=== PATIENT | female | born 1975 ===

== ENCOUNTER 2017-02-12 14:56 | Emergency (ER) | payer MEDICAID ==
[2017-02-12 14:56] VITALS: BMI 30.1
[2017-02-12 15:01] VITALS: BP 119/74; PULSE 78; RESP 16; TEMP 97.9; O2SAT 98
[2017-02-12] MEDS ORDERED: Tmp-Smz 800 mg-160 mg DS Tab PO STA (15:21)
[2017-02-12] MEDS ORDERED: Tmp-Smz 800 mg-160 mg DS Tab ONE (15:30)
--- NOTE | 2017-02-12 16:07 | C.PDOC ---
History Of Present Illness 41 y/o female whose PMHx includes DM, presents to the ED for evaluation of an infection to her right pinky toe which she noted around 2 days ago. Patient states she recently bought new sneakers which were small. She reports formation of a blister around the area, which then popped. Patient has been applying antibiotic ointment without improvement. Patient denies fever, chills, discharge or any injuries/trauma to the affected area. Time Seen by Provider: 02/12/17 15:11 Chief Complaint (Nursing): Lower Extremity Problem/Injury History Per: Patient History/Exam Limitations: no limitations Onset/Duration Of Symptoms: Days Current Symptoms Are (Timing): Still Present Additional History Per: Patient - Ankle/Foot Description Of Injury: denies: Fell, Struck With Object, Struck Against Object Past Medical History Reviewed: Historical Data, Nursing Documentation, Vital Signs Vital Signs: Last Vital Signs Temp 97.9 F 02/12/17 15:01 Pulse 78 02/12/17 15:01 Resp 16 02/12/17 15:01 BP 119/74 02/12/17 15:01 Pulse Ox 98 02/12/17 16:41 - Medical History PMH: Anxiety, Cardia Arrhythmia (heart murmurs), Depression, Diabetes, Hyperthyroidism, Seizures (last seizure: 1 week ago) Surgical History: No Surg Hx - [facility] Procedures DRUG DETOXIFICATION (02/28/15) Family History: States: Unknown Family Hx - Social History Hx Tobacco Use: Yes Hx Alcohol Use: No Hx Substance Use: No - Immunization History Hx Tetanus Toxoid Vaccination: Yes Hx Influenza Vaccination: Yes Hx Pneumococcal Vaccination: No Review Of Systems Except As Marked, All Systems Reviewed And Found Negative. Constitutional: Negative for: Fever, Chills Skin: Positive for: Other (+right pinky toe pain) Physical Exam - Physical Exam Appears: Non-toxic, No Acute Distress Skin: Warm, Dry, Other (superficial wound to right 5th toe. no discharge or tenderness on palpation ) Head: Atraumatic, Normacephalic Eye(s): bilateral: Normal Inspection Oral Mucosa: Moist Neck: Supple Extremity: Normal ROM, No Tenderness, No Calf Tenderness, Capillary Refill ( less than 2 seconds), No Deformity, No Swelling Pulses: Left Dorsalis Pedis: Normal, Right Dorsalis Pedis: Normal Neurological/Psych: Oriented x3, Normal Speech Gait: Steady ED Course And Treatment O2 Sat by Pulse Oximetry: 98 (on RA) Pulse Ox Interpretation: Normal Medical Decision Making Medical Decision Making: Impression: 41 y/o female with pain to right 5th toe from blister Plan: * Bactrim PO * Tylenol PO * reassess and disposition Progress Notes: Patient received Bactrim PO and Tylenol PO. Disposition Counseled Patient/Family Regarding: Need For Followup, Rx Given - Disposition Disposition: HOME/ ROUTINE Disposition Time: 16:05 Condition: STABLE Prescriptions: Sulfamethoxazole/Trimethoprim [Bactrim DS 800 mg-160 mg] 1 tab PO BID #14 tab Instructions: Blister (ED) Print Language: LATVIAN - POA Present On Arrival: None - Clinical Impression Clinical Impression: Blister - PA / CHASSIS WIRER / Resident Statement MD/DO has reviewed & agrees with the documentation as recorded. - Scribe Statement The provider has reviewed the documentation as recorded by the Scribe (Regina Ramos) All medical record entries made by the Scribe were at my direction and personally dictated by me. I have reviewed the chart and agree that the record accurately reflects my personal performance of the history, physical exam, medical decision making, and the department course for this patient. I have also personally directed, reviewed, and agree with the discharge instructions and disposition.
== END 2017-02-12 16:12 | disposition home or self-care (01) ==
LOC: C.ER 14:56
DX: S90.424A Blister (nonthermal), right lesser toe(s), initial encounter (principal); X58.XXXA Exposure to other specified factors, initial encounter

== ENCOUNTER 2017-06-09 21:14 | Inpatient (IN) | payer MEDICAID ==
[2017-06-09 21:15] VITALS: BMI 30.1
[2017-06-09] MEDS ORDERED: Sodium Chloride 0.9% 1,000 ML IV ONE (21:36)
[2017-06-09 21:49] LABS: BASO # 0.1 K/uL (0.0-0.2); BASO % 0.5 % (0.0-2.0); EOS # 0.1 K/uL (0.0-0.7); EOS % 0.4 % (0.0-4.0); LYMPH # 8.9 K/uL (1.0-4.3); LYMPH % 41.5 % (20.0-40.0); MEAN CORPUSCULAR HGB CONC 32.8 g/dL (33.0-37.0); MEAN PLATELET VOLUME 7.2 fL (7.2-11.7); MONO # 0.9 K/uL (0.0-0.8); NEUT # 11.5 K/uL (1.8-7.0); NEUT % 53.6 % (50.0-75.0); RBC 4.25 Mil/uL (3.80-5.20); WHITE BLOOD COUNT 21.4 K/uL (4.8-10.8)
--- NOTE | 2017-06-09 21:50 | C.PDOC ---
History Of Present Illness Patient was a visitor leaving the hospital who had a seizure in [facility] hallway and hit her face. Witnesses describe the seizure has a generalized tonic clonic seizure lasting 10-15 seconds. Patient is currently post ictal and has not verbalized any physical complaints. Time Seen by Provider: 06/09/17 21:33 Chief Complaint (Nursing): Seizure History Per: Other (Witnesses) History/Exam Limitations: no limitations Recent Seizure Activity Began: Just Before Arrival Number Of Seizures: One Length Of Seizures (Duration): Seconds Quality Of Seizure: Generalized Precipitating Factor(s): Other (Not known) Associated Symptoms: Injury As A Result Of Seizure Activity Post-ictal Period: Yes Severity: Moderate Pain Scale Rating Of: 4 Recent travel outside of the [place]: No Past Medical History Reviewed: Historical Data, Nursing Documentation, Vital Signs Vital Signs: Last Vital Signs Temp 98.6 F 06/09/17 21:37 Pulse 104 H 06/09/17 21:37 Resp 18 06/09/17 21:37 BP 117/70 06/09/17 21:37 Pulse Ox 97 06/09/17 22:41 - Medical History PMH: Anxiety, Cardia Arrhythmia (heart murmurs), Depression, Diabetes, Hyperthyroidism, Seizures Surgical History: No Surg Hx - [facility] Procedures DRUG DETOXIFICATION (02/28/15) Family History: States: No Known Family Hx - Social History Hx Tobacco Use: Yes Hx Alcohol Use: No Hx Substance Use: No - Immunization History Hx Tetanus Toxoid Vaccination: Yes Hx Influenza Vaccination: Yes Hx Pneumococcal Vaccination: No Review Of Systems Constitutional: Negative for: Fever, Chills Eyes: Negative for: Redness ENT: Negative for: Throat Pain Cardiovascular: Negative for: Chest Pain Gastrointestinal: Negative for: Nausea, Vomiting, Abdominal Pain Genitourinary: Negative for: Dysuria Musculoskeletal: Negative for: Back Pain Skin: Negative for: Rash Neurological: Positive for: Seizures Psych: Negative for: Anxiety Physical Exam - Physical Exam Appears: Non-toxic, Other (Awake, Alert, Slow to respond) Skin: Warm, Dry Head: Normacephalic Eye(s): bilateral: Normal Inspection, PERRL, EOMI Nose: Epistaxis, No Tenderness, Other (No crepitus palpated) Oral Mucosa: Moist Tongue: Laceration (small, right lat aspect ) Lips: Abrasion (lower lip) Teeth: Other (chipped r upper incisor) Neck: Trachea Midline, Supple Chest: Symmetrical, No Tenderness Cardiovascular: Rhythm Regular, No Murmur Respiratory: No Rales, No Rhonchi, No Wheezing Gastrointestinal/Abdominal: Soft, No Tenderness Back: No CVA Tenderness Extremity: Normal ROM Extremity: Bilateral: Atraumatic, Normal Color And Temperature, Normal ROM Neurological/Psych: Oriented x3, Normal Speech, Normal Cognition Gait: Steady ED Course And Treatment - Laboratory Results Result Diagrams: 06/09/17 21:42 06/09/17 21:42 O2 Sat by Pulse Oximetry: 97 (Room air) Pulse Ox Interpretation: Normal Progress Note: Head CT, orbits/facials CT, blood work, and urinalysis ordered. IV fluids administered. Disposition Discussed With : Padmini Johnson Comment: accepted the pt on her service and took over the care at 12:22 AM Doctor Will See Patient In The: Hospital Counseled Patient/Family Regarding: Studies Performed, Diagnosis - Disposition Disposition: HOSPITALIZED Disposition Time: 00:22 Condition: FAIR Forms: [employer] (Lebanese) - POA Present On Arrival: Falls Or Trauma, Poor Glycemic Control - Clinical Impression Clinical Impression: Seizure, Laceration of tongue, Fracture, tooth - Scribe Statement The provider has reviewed the documentation as recorded by the Scribe Solo Zhang All medical record entries made by the Scribe were at my direction and personally dictated by me. I have reviewed the chart and agree that the record accurately reflects my personal performance of the history, physical exam, medical decision making, and the department course for this patient. I have also personally directed, reviewed, and agree with the discharge instructions and disposition. Decision To Admit - Pt Status Changed To: Hospital Disposition Of: Inpatient - Admit Certification Admit to Inpatient:: After my assessment, the patient will require hospitalization for at least two midnights. This is because of the severity of symptoms shown, intensity of services needed, and/or the medical risk in this patient being treated as an outpatient. - InPatient: Physician Admission Certification: I certify that this patient requires 2 or more midnights of care for the following reason:: After my assessment, the patient will require hospitalization for at least two midnights. This is because of the severity of symptoms shown, intensity of services needed, and/or the medical risk in this patient being treated as an outpatient. - . Bed Request Type: Regular Admitting Physician: Padmini Johnson Patient Diagnosis: Seizure, Laceration of tongue, Fracture, tooth
[2017-06-09 21:54] LABS: ALBUMIN 4.8 g/dL (3.5-5.0); MEAN CELL VOLUME 100.4 fL (81.0-99.0)
[2017-06-09 21:57] LABS: ALB/GLOB RATIO 1.3 (1.0-2.1); ALT/SGPT 22 U/L (9-52); AST/SGOT 18 U/L (14-36); BLOOD UREA NITROGEN 11 mg/dL (7-17); GFR AFRICAN-AMERICAN > 60; GFR NON-AFRICAN AMERICAN > 60
--- NOTE | 2017-06-09 22:40 | CT ---
EXAM: CT Head Without Intravenous Contrast CLINICAL HISTORY: 41 years old, female; Injury or trauma and signs and symptoms; Fall; Initial encounter; Concussion / head injury; Syncope and collapse; Additional info: Seizure TECHNIQUE: Axial computed tomography images of the head/brain without intravenous contrast. This CT exam was performed using one or more of the following dose reduction techniques: automated exposure control, adjustment of the mA and/or kV according to patient size, and/or use of iterative reconstruction technique. COMPARISON: No relevant prior studies available. FINDINGS: Brain: Mild atrophy. No intracranial hemorrhage. No mass. No definite edema. Ventricles: No hydrocephalus. Bones/joints: No calvarial fracture. Mastoid air cells: No mastoid effusion. IMPRESSION: 1. No intracranial hemorrhage. 2. See facial bone CT report for additional details.
--- NOTE | 2017-06-09 22:54 | CT ---
EXAM: CT Orbits Without Intravenous Contrast CLINICAL HISTORY: 41 years old, female; Injury or trauma and signs and symptoms; Fall; Initial encounter; Abrasion; Forehead and lip/oral cavity; Upper; Other: Seizure TECHNIQUE: Axial computed tomography images of the orbits without intravenous contrast. This CT exam was performed using one or more of the following dose reduction techniques: automated exposure control, adjustment of the mA and/or kV according to patient size, and/or use of iterative reconstruction technique. Coronal and sagittal reformatted images were created and reviewed. COMPARISON: CT - IAC W/O CONTRAST 12/20/2015 8:21:19 PM FINDINGS: Orbits: Unremarkable as visualized. Sinuses: Mild focal mucosal thickening of LEFT maxillary sinus. No air-fluid levels. Bones/joints: Probable loosening of upper central incisors with associated fracture of superior alveolar ridge. Possible avulsion fracture maxillary spine. Soft tissues: Minimal facial soft tissue swelling. Dental: Dental caries. IMPRESSION: 1. Facial fractures as above. 2. Incidental/non-acute findings are described above.
[2017-06-09] MEDS ORDERED: Potassium Chloride 10 mEq ER Tab PO STA (23:08)
[2017-06-09] MEDS ORDERED: levETIRAcetam 500 MG in Sodium Chloride 0.9% 100 ML IVPB SCH (23:15)
[2017-06-09] MEDS ORDERED: Sodium Chloride 0.9% 1,000 ML ONE (23:26)
[2017-06-09] MEDS ORDERED: Potassium Chloride 20 mEq ER Tab PO ONE (23:26)
[2017-06-10 06:54] LABS: HDL CHOLESTEROL 28 mg/dL (30-70)
[2017-06-10 07:04] LABS: LDL CHOLESTEROL 161 mg/dL (0-129)
[2017-06-10 08:14] LABS: FREE T4 0.61 ng/dL (0.78-2.19)
[2017-06-10 12:11] LABS: HEMOGLOBIN 12.6 g/dL (11.0-16.0); MEAN CORPUSCULAR HEMOGLOBIN 32.4 pg (27.0-31.0); MEAN CORPUSCULAR HGB CONC 32.7 g/dL (33.0-37.0); MEAN PLATELET VOLUME 7.4 fL (7.2-11.7); RBC 3.88 Mil/uL (3.80-5.20); RED CELL DISTRIBUTION WIDTH 13.7 % (11.5-14.5); WHITE BLOOD COUNT 14.8 K/uL (4.8-10.8)
[2017-06-10 12:50] LABS: ALBUMIN 3.7 g/dL (3.5-5.0)
[2017-06-10 12:53] LABS: AST/SGOT 29 U/L (14-36); GFR AFRICAN-AMERICAN > 60; GFR NON-AFRICAN AMERICAN > 60
[2017-06-10 12:54] LABS: ALB/GLOB RATIO 1.2 (1.0-2.1); ALT/SGPT 27 U/L (9-52); BLOOD UREA NITROGEN 9 mg/dL (7-17); CALCIUM 8.2 mg/dl (8.6-10.4)
--- NOTE | 2017-06-10 13:01 | RAD ---
Right hand three views History: Hand pain. Comparison: None available. Findings: Narrowing of the 2nd through 4th PIP joint spaces. No evidence of acute displaced fracture or dislocation. Narrowing of the radiocarpal joint space. Impression: Degenerative changes. If pain persists, consider MRI.
[2017-06-10 14:40] LABS: HCG,QUALITATIVE URINE NEGATIVE (NEGATIVE)
[2017-06-10 14:49] LABS: SQUAMOUS EPITHIAL 1 /hpf (0-5); URINE BILIRUBIN NEGATIVE (NEGATIVE); URINE BLOOD NEGATIVE (NEGATIVE); URINE CLARITY Clear (Clear); URINE COLOR Yellow (YELLOW); URINE GLUCOSE (UA) 1+ mg/dL (Normal); URINE LEUKOCYTE ESTERASE NEG Leu/uL (Negative); URINE NITRATE NEGATIVE (NEGATIVE); URINE PROTEIN 1+ mg/dL (NEGATIVE)
--- NOTE | 2017-06-10 15:55 | CP.PCM.HP ---
History of Present Illness - History of Present Illness History of Present Illness: pt was walking and [facility] hit her face in the [place] had hx of seizers 1.5 monthago and last year Present on Admission - Present on Admission Any Indicators Present on Admission: No Review of Systems - Review of Systems Systems not reviewed;Unavailable: Acuity of Condition - Constitutional Constitutional: As Per HPI - EENT Eyes: As Per HPI Nose/Mouth/Throat: As Per HPI - Breasts Breasts: As Per HPI - Cardiovascular Cardiovascular: Palpitations - Respiratory Respiratory: As Per HPI - Gastrointestinal Gastrointestinal: As Per HPI - Genitourinary Genitourinary: As Per HPI - Reproductive: Female Reproductive:Female: Cycle <21 Days - Menstruation Menstruation: As Per HPI - Hematologic/Lymphatic Hematologic: As Per HPI Past Patient History - Infectious Disease Hx of Infectious Diseases: None - Past Medical History & Family History Past Medical History?: Yes - Past Social History Smoking Status: Current Some Days Smoker - CARDIAC Hx Cardia Arrhythmia: Yes (heart murmurs) - PULMONARY Hx Respiratory Disorders: No Hx Tuberculosis: No - NEUROLOGICAL Hx Neurological Disorder: Yes Hx Seizures: Yes - HEENT Hx HEENT Problems: No - RENAL Hx Chronic Kidney Disease: No - ENDOCRINE/METABOLIC Hx Endocrine Disorders: Yes Hx Hyperthyroidism: Yes - HEMATOLOGICAL/ONCOLOGICAL Hx Blood Disorders: No Hx Human Immunodeficiency Virus (HIV): No - INTEGUMENTARY Hx Dermatological Problems: No - MUSCULOSKELETAL/RHEUMATOLOGICAL Hx Falls: Yes - GENITOURINARY/GYNECOLOGICAL Hx Sexually Transmitted Disorders: No - PSYCHIATRIC Hx Substance Use: No - SURGICAL HISTORY Hx Surgeries: Yes Hx Section: Yes Other/Comment: shoulder fracture 2012 - ANESTHESIA Hx Anesthesia: Yes Hx Anesthesia Reactions: No Meds Allergies/Adverse Reactions: Allergies Allergy/AdvReac Type Severity Reaction Status Date / Time aspirin Allergy ITCHING Verified 06/09/17 21:36 Penicillins Allergy Verified 06/09/17 21:36 shrimp Allergy Verified 06/09/17 21:36 Physical Exam - Constitutional Appears: Non-toxic - Head Exam Head Exam: ATRAUMATIC Additional comments: abrasions lips - Eye Exam Eye Exam: Normal appearance - ENT Exam ENT Exam: Mucous Membranes Moist - Neck Exam Neck exam: Positive for: Full Rom - Respiratory Exam Respiratory Exam: NORMAL BREATHING PATTERN - Cardiovascular Exam Cardiovascular Exam: REGULAR RHYTHM Results - Vital Signs Recent Vital Signs: Last Vital Signs Temp 98.9 F 06/10/17 11:34 Pulse 74 06/10/17 11:34 Resp 20 06/10/17 11:34 BP 108/67 06/10/17 11:34 Pulse Ox 95 06/10/17 11:34 - Labs Result Diagrams: 06/10/17 11:58 06/10/17 06:30 Labs: Laboratory Results - last 24 hr 06/10/17 06/10/17 06/10/17 06:25 06:30 06:30 WBC RBC Hgb Hct MCV MCH MCHC RDW Plt Count MPV Sodium 139 Potassium 4.0 Chloride 103 Carbon Dioxide 24 Anion Gap 17 BUN 9 Creatinine 0.6 L Est GFR ( Amer) > 60 Est GFR (Non-Af Amer) > 60 POC Glucose (mg/dL) 148 H Random Glucose 132 H Calcium 8.2 L Total Bilirubin 0.7 AST 29 ALT 27 Alkaline Phosphatase 71 Total Protein 6.6 Albumin 3.7 Globulin 3.0 Albumin/Globulin Ratio 1.2 Triglycerides 412 H Cholesterol 275 H LDL Cholesterol Direct 161 H HDL Cholesterol 28 L Free T4 0.61 L TSH 3rd Generation 9.05 H Urine Color Urine Clarity Urine pH Ur Specific [place] Urine Protein Urine Glucose (UA) Urine Ketones Urine Blood Urine Nitrate Urine Bilirubin Urine Urobilinogen Ur Leukocyte Esterase Urine WBC (Auto) Urine RBC (Auto) Ur Squamous Epith Cells Urine HCG, Qual 06/10/17 06/10/17 11:58 14:28 WBC 14.8 H RBC 3.88 Hgb 12.6 Hct 38.4 MCV 99.0 MCH 32.4 H MCHC 32.7 L RDW 13.7 Plt Count 353 D MPV 7.4 Sodium Potassium Chloride Carbon Dioxide Anion Gap BUN Creatinine Est GFR ( Amer) Est GFR (Non-Af Amer) POC Glucose (mg/dL) Random Glucose Calcium Total Bilirubin AST ALT Alkaline Phosphatase Total Protein Albumin Globulin Albumin/Globulin Ratio Triglycerides Cholesterol LDL Cholesterol Direct HDL Cholesterol Free T4 TSH 3rd Generation Urine Color Yellow Urine Clarity Clear Urine pH 6.0 Ur Specific [place] 1.017 Urine Protein 1+ H Urine Glucose (UA) 1+ Urine Ketones 1+ H Urine Blood Negative Urine Nitrate Negative Urine Bilirubin Negative Urine Urobilinogen 2.0 H Ur Leukocyte Esterase Neg Urine WBC (Auto) < 1 Urine RBC (Auto) 1 Ur Squamous Epith Cells 1 Urine HCG, Qual Negative Assessment & Plan - Assessment and Plan (Free Text) Assessment: ac seizer s/p trauma face hypcaleamia hypocalceamia Plan: admit and as per orders - Date & Time Date: 06/10/17 Time: 16:01
[2017-06-10] MEDS: Calcium-Vit D 250 mg-125 Units Tab UD PO SCH (17:53)
--- NOTE | 2017-06-10 21:01 | CP.PCM.CON ---
History of Present Illness - History of Present Illness History of Present Illness: Patient was a visitor leaving the hospital who had a seizure in e hallway and hit her face. Witnesses describe the seizure has a generalized tonic clonic seizure lasting 10-15 seconds. Patient is currently post ictal and has not verbalized any physical complaints. Chief Complaint : Seizure She is non compliant with her Keppra. Type of seizures: CP Sz. First Seizure in 2010 Frequency of seizures: Once a month Positive L.O.P , Positive L.O.C - Medical History PMH: Anxiety depression that is untreated due to non compliance, Cardiac Arrhythmia (heart murmurs), Depression, Diabetes, Hyperthyroidism, Seizures Old H/O Kidney stones 15 years. DM Surgical History: Positive Orthopedic Surg Hx, H/O metallic implant in the right Shoulder. She says she was advised not to have any MRI - [facility] Procedures DRUG DETOXIFICATION (02/28/15) Family History: States: No Known Family Hx - Social History Hx Tobacco Use: Yes Hx Alcohol Use: No Hx Substance Use: No - Immunization History Hx Tetanus Toxoid Vaccination: Yes Hx Influenza Vaccination: Yes Hx Pneumococcal Vaccination: No IMPRESSION of CT Facial Bones: 1. Facial fractures as above. 2. Incidental/non-acute findings are described above. Past Patient History - Infectious Disease Hx of Infectious Diseases: None - Past Medical History & Family History Past Medical History?: Yes - Past Social History Smoking Status: Current Some Days Smoker - CARDIAC Hx Cardia Arrhythmia: Yes (heart murmurs) - PULMONARY Hx Respiratory Disorders: No Hx Tuberculosis: No - NEUROLOGICAL Hx Neurological Disorder: Yes Hx Seizures: Yes - HEENT Hx HEENT Problems: No - RENAL Hx Chronic Kidney Disease: No - ENDOCRINE/METABOLIC Hx Endocrine Disorders: Yes Hx Hyperthyroidism: Yes - HEMATOLOGICAL/ONCOLOGICAL Hx Blood Disorders: No Hx Human Immunodeficiency Virus (HIV): No - INTEGUMENTARY Hx Dermatological Problems: No - MUSCULOSKELETAL/RHEUMATOLOGICAL Hx Falls: Yes - GENITOURINARY/GYNECOLOGICAL Hx Sexually Transmitted Disorders: No - PSYCHIATRIC Hx Substance Use: No - SURGICAL HISTORY Hx Surgeries: Yes Hx Section: Yes Other/Comment: shoulder fracture 2012 - ANESTHESIA Hx Anesthesia: Yes Hx Anesthesia Reactions: No Meds Allergies/Adverse Reactions: Allergies Allergy/AdvReac Type Severity Reaction Status Date / Time aspirin Allergy ITCHING Verified 06/09/17 21:36 Penicillins Allergy Verified 06/09/17 21:36 shrimp Allergy Verified 06/09/17 21:36 - Medications Medications: Current Medications Acetaminophen (Tylenol 325mg Tab) 650 mg PO Q6 PRN PRN Reason: Pain Last Admin: 06/10/17 10:34 Dose: 650 mg Calcium/Vitamin D (Oscal-D 250 Mg-125 Units Tab) 1 tab PO DAILY [facility] Last Admin: 06/10/17 17:53 Dose: 1 tab Clindamycin HCl (Cleocin) 300 mg PO Q8H [facility] Last Admin: 06/10/17 17:53 Dose: 300 mg Clonazepam (Klonopin) 0.5 mg PO Q6 [facility] Last Admin: 06/10/17 17:56 Dose: 0.5 mg Fenofibrate (Tricor) 145 mg PO QPM [facility] Last Admin: 06/10/17 17:52 Dose: 145 mg Levetiracetam (Keppra) 1,000 mg PO Q12 [facility] Levothyroxine Sodium (Synthroid) 100 mcg PO DAILY@0630 [facility] Lorazepam (Ativan) 2 mg IVP Q6H PRN PRN Reason: Seizure activity Metformin HCl (Glucophage Xr) 500 mg PO DAILY [facility] Last Admin: 06/10/17 17:53 Dose: Not Given Pneumococcal Polyvalent Vaccine (Pneumovax 23 Vaccine) 0.5 ml IM .ONCE ONE Stop: 06/12/17 10:01 Physical Exam - Neurological Exam Additional comments: Mental status: Normal exam. Awake alert oriented X 3 Fluent coherent speech with mild dysarthria due to alveolar bone injury and Fracture. normal cognition. Cranial nerves II to XII; No deficits Motor: Normal tone, power and muscle bulk Normal DTR Toes are down going Sensory: local pain as explained Cerebellar: Normal FNT Stature and gait: Not tested. Results - Vital Signs Recent Vital Signs: Last Vital Signs Temp 98.6 F 06/10/17 15:55 Pulse 76 06/10/17 15:55 Resp 20 06/10/17 15:55 BP 118/71 06/10/17 15:55 Pulse Ox 94 L 06/10/17 15:55 - Labs Result Diagrams: 06/10/17 11:58 06/10/17 06:30 Labs: Laboratory Results - last 24 hr 06/10/17 06/10/17 06/10/17 06:25 06:30 06:30 WBC RBC Hgb Hct MCV MCH MCHC RDW Plt Count MPV Sodium 139 Potassium 4.0 Chloride 103 Carbon Dioxide 24 Anion Gap 17 BUN 9 Creatinine 0.6 L Est GFR ( Amer) > 60 Est GFR (Non-Af Amer) > 60 POC Glucose (mg/dL) 148 H Random Glucose 132 H Calcium 8.2 L Total Bilirubin 0.7 AST 29 ALT 27 Alkaline Phosphatase 71 Total Protein 6.6 Albumin 3.7 Globulin 3.0 Albumin/Globulin Ratio 1.2 Triglycerides 412 H Cholesterol 275 H LDL Cholesterol Direct 161 H HDL Cholesterol 28 L Free T4 0.61 L TSH 3rd Generation 9.05 H Urine Color Urine Clarity Urine pH Ur Specific [place] Urine Protein Urine Glucose (UA) Urine Ketones Urine Blood Urine Nitrate Urine Bilirubin Urine Urobilinogen Ur Leukocyte Esterase Urine WBC (Auto) Urine RBC (Auto) Ur Squamous Epith Cells Urine HCG, Qual 06/10/17 06/10/17 06/10/17 11:58 14:28 16:20 WBC 14.8 H RBC 3.88 Hgb 12.6 Hct 38.4 MCV 99.0 MCH 32.4 H MCHC 32.7 L RDW 13.7 Plt Count 353 D MPV 7.4 Sodium Potassium Chloride Carbon Dioxide Anion Gap BUN Creatinine Est GFR ( Amer) Est GFR (Non-Af Amer) POC Glucose (mg/dL) 126 H Random Glucose Calcium Total Bilirubin AST ALT Alkaline Phosphatase Total Protein Albumin Globulin Albumin/Globulin Ratio Triglycerides Cholesterol LDL Cholesterol Direct HDL Cholesterol Free T4 TSH 3rd Generation Urine Color Yellow Urine Clarity Clear Urine pH 6.0 Ur Specific [place] 1.017 Urine Protein 1+ H Urine Glucose (UA) 1+ Urine Ketones 1+ H Urine Blood Negative Urine Nitrate Negative Urine Bilirubin Negative Urine Urobilinogen 2.0 H Ur Leukocyte Esterase Neg Urine WBC (Auto) < 1 Urine RBC (Auto) 1 Ur Squamous Epith Cells 1 Urine HCG, Qual Negative Assessment & Plan (1) Fracture, tooth Status: Acute (2) Laceration of tongue Status: Acute (3) Seizure Assessment and Plan: Continue Keppra, cannot have Topamax due to kidney stones. Must have Psych Consult for Anxiety Depression. Status: Acute (4) Abscess of external ear Status: Acute (5) Blister Status: Acute (6) Hyperglycemia Status: Acute (7) Anxiety and depression Status: Acute (8) Anxiety and depression Assessment and Plan: Psych consult Status: Chronic
--- NOTE | 2017-06-10 23:42 | CON ---
DATE: 06/10/2017 CHIEF COMPLAINT AND REASON FOR CONSULTATION: The patient referred by Dr. Padmini Johnson for evaluation of this patient who has a seizure in the hospital and history of depression and anxiety. The patient was taking Xanax as well as Klonopin and also the patient was on hydroxyzine at home. HISTORY OF PRESENT ILLNESS: This is a case of a 41-year-old female who was a visitor at hospital. The patient was visiting her daughter but had seizure while leaving the hospital in the hallway and hit her face and fractured her tooth. The patient was describing it as generalized tonic-clonic lasting about 10 to 15 seconds and the patient also bit her tongue. The patient is now postictal and seen by Dr. Johnson in her room and the patient reports that she has history of anxiety, has been taking Xanax at home and also has been followed by Dr. Leyva,_ a neurologist who prescribed her Keppra 1 gm q. 12 hours. She was seeing also another doctor who gave her Klonopin 0.5 four times a day which she says it was given for pain, she has pain in her back. The patient also has history of shoulder surgery after a fall in one of her seizures. She says she had seizures in 2011 and seizure runs in her family. The patient reports some history of blood dyscrasia in the family. Today, was seen, noted to be complaining of pain and also her lips are swollen and she fractured her tooth but other than that the patient states that she is feeling a little better. She also has resumed her Klonopin as well as the Keppra. The patient was given Ativan 2 mg IV q. 6 p.r.n. for seizure. PAST MEDICAL HISTORY: History of depression and anxiety. Has been taking Klonopin and Xanax. Medical history with history of seizures, history of diabetes, thyroid problems, history of hyperthyroidism, history of cardiac murmurs. DRUG HISTORY: The patient is a smoker, but no illicit drug or alcohol use. SOCIAL HISTORY: The patient works as rn quality. She lives with her family. ALLERGIES: THE PATIENT IS ALLERGIC TO ASPIRIN, PENICILLIN, AND SHRIMP. LIST OF CURRENT MEDICATIONS: Ativan 2 mg IV q. 6 p.r.n. as well as the patient is on Keppra 750 mg q. 12. The patient was also on Tylenol at home. She was taking Klonopin 0.5 q.i.d. p.r.n., Xanax 2 mg p.r.n., also Restoril 50 mg b.i.d. and Synthroid 100 mcg daily. PHYSICAL EXAMINATION VITAL SIGNS: Temperature is 98.9, pulse is 74, blood pressure 108/67, respirations 20, oxygen saturation is 95%. LABORATORY DATA: Review of her labs, the patient's current WBC is 14.8, BUN is 9, creatinine 0.6. Her random blood sugar is 132. Her free T4 is 0.61 and also TSH, third generation, 9.05. UA is +1 for protein and +1 for ketones. REVIEW OF SYSTEMS: GENERAL: The patient is feeling weak, alert and oriented x3, seen her in room by Dr. Johnson. Complaining of pain in her shoulder. The patient is postictal. SKIN: No pruritus. HEENT: Swollen lips, fractured her tooth during her fall. Also bit her tongue. The patient has bite junior on her tongue. No headache or dizziness. NECK: Supple. RESPIRATORY: No dyspnea. CARDIOVASCULAR: No chest pain. GASTROINTESTINAL: No nausea, no vomiting. EXTREMITIES: The patient moves extremities. MUSCULOSKELETAL: Feels weak. NEUROLOGIC: Oriented x3. GENITOURINARY: No continence. MENTAL STATUS EXAMINATION: Well-developed female who looks stated age, status post seizure, oriented x3. Mood is anxious. Affect is reactive. Speech is spontaneous. Thought process coherent. Thought content, no paranoia. No hallucinations. No suicidal ideation. Attention and memory seem to be fair. Insight and judgement limited. According to the nurse, the patient has been compliant with her medicines, has been taking her seizures medications over the last 2 months. Impulse control is fair at this time. IMPRESSION: Anxiety disorder as well as mood disorder secondary to medical problems, history of depression. PLAN AND RECOMMENDATIONS: The patient seen, meds reviewed. We will put the patient on Klonopin 0.5 mg q. 6 for her anxiety as well as I change the dose of the Keppra to 1000 mg q. 12 instead of 750 q. 12 and then keep the patient off Xanax, but may have the Ativan 2 mg IV q. 6 hours p.r.n. for seizures. The patient has been referred, seen by Dr. Toledo, neurologist, for the seizures. The patient advised to be more compliant with her meds. Thank you very much for the consult. Donovan Bundy MD [facility]
[2017-06-11] MEDS: Levothyroxine 100 MCG TAB PO SCH (05:58)
[2017-06-11 07:42] LABS: HEMOGLOBIN 12.9 g/dL (11.0-16.0); MEAN CELL VOLUME 97.2 fL (81.0-99.0); MEAN CORPUSCULAR HGB CONC 33.9 g/dL (33.0-37.0); MEAN PLATELET VOLUME 7.3 fL (7.2-11.7); RBC 3.92 Mil/uL (3.80-5.20); RED CELL DISTRIBUTION WIDTH 13.7 % (11.5-14.5); WHITE BLOOD COUNT 10.8 K/uL (4.8-10.8)
[2017-06-11 07:46] LABS: BLOOD UREA NITROGEN 10 mg/dL (7-17); GFR AFRICAN-AMERICAN > 60; GFR NON-AFRICAN AMERICAN > 60
[2017-06-11 07:47] LABS: CALCIUM 8.7 mg/dl (8.6-10.4)
[2017-06-11 08:35] LABS: PROLACTIN 42.6 ng/mL (3.0-18.9)
[2017-06-11] MEDS: Calcium-Vit D 250 mg-125 Units Tab UD PO SCH (09:41)
--- NOTE | 2017-06-11 11:18 | CP.PCM.PN ---
Subjective - Date & Time of Evaluation Date of Evaluation: 06/11/17 Time of Evaluation: 11:16 - Subjective Subjective: feels anexious able toeate soft food still abraisions her lip fx face Objective - Vital Signs/Intake and Output Vital Signs (last 24 hours): Temp Pulse Resp BP Pulse Ox 98.4 F 82 18 114/74 96 06/11/17 08:04 06/11/17 08:04 06/11/17 08:04 06/11/17 08:04 06/11/17 08:04 - Medications Medications: Current Medications Acetaminophen (Tylenol 325mg Tab) 650 mg PO Q6 PRN PRN Reason: Pain Last Admin: 06/10/17 10:34 Dose: 650 mg Calcium/Vitamin D (Oscal-D 250 Mg-125 Units Tab) 1 tab PO DAILY [facility] Last Admin: 06/11/17 09:41 Dose: 1 tab Clindamycin HCl (Cleocin) 300 mg PO Q8H [facility] Last Admin: 06/11/17 08:12 Dose: 300 mg Clonazepam (Klonopin) 0.5 mg PO Q6 [facility] Last Admin: 06/11/17 05:58 Dose: 0.5 mg Fenofibrate (Tricor) 145 mg PO QPM [facility] Last Admin: 06/10/17 17:52 Dose: 145 mg Levetiracetam (Keppra) 1,000 mg PO Q12 [facility] Last Admin: 06/11/17 09:41 Dose: 1,000 mg Levothyroxine Sodium (Synthroid) 100 mcg PO DAILY@0630 [facility] Last Admin: 06/11/17 05:58 Dose: 100 mcg Lorazepam (Ativan) 2 mg IVP Q6H PRN PRN Reason: Seizure activity Last Admin: 06/10/17 22:32 Dose: 2 mg Pneumococcal Polyvalent Vaccine (Pneumovax 23 Vaccine) 0.5 ml IM .ONCE ONE Stop: 06/12/17 10:01 - Labs Labs: 06/11/17 07:17 06/11/17 07:17 - Constitutional Appears: Non-toxic - Head Exam Head Exam: NORMAL INSPECTION - Eye Exam Eye Exam: Normal appearance Pupil Exam: NORMAL ACCOMODATION - ENT Exam ENT Exam: Mucous Membranes Moist - Neck Exam Neck Exam: Normal Inspection - Respiratory Exam Respiratory Exam: Clear to Ausculation Bilateral - Cardiovascular Exam Cardiovascular Exam: REGULAR RHYTHM - GI/Abdominal Exam GI & Abdominal Exam: Normal Bowel Sounds - Rectal Exam Rectal Exam: NORMAL INSPECTION - Exam Exam: NORMAL INSPECTION External exam: NORMAL EXTERNAL EXAM - Skin Skin Exam: Normal Color Assessment and Plan - Assessment and Plan (Free Text) Assessment: seizer disorder s/p fascial trauma and fx anexiety weeke Plan: cont as per orderes
[2017-06-11 15:37] LABS: BARBITURATES, UR NEGATIVE (NEGATIVE)
[2017-06-11 15:41] LABS: OPIATES, UR NEGATIVE (NEGATIVE); PHENCYCLIDINE, UR NEGATIVE (NEGATIVE)
[2017-06-11 16:10] LABS: BENZODIAZEPINES, UR POSITIVE (NEGATIVE)
[2017-06-11] MEDS ORDERED: Ergocalciferol 50,000 Intl Units Cap PO SCH (19:15)
--- NOTE | 2017-06-11 19:18 | CP.PCM.PN ---
Subjective - Date & Time of Evaluation Date of Evaluation: 06/11/17 Time of Evaluation: 19:13 - Subjective Subjective: Patient has a low Vitamin D and a replacement is given. Psychiatry consult by Dr Christianson is appreciated. She will continue a higher dose of Keppra at 1000 mg Q 12 hrs and Klonopin as she has anxiety depression. She is off Xanax. She has no seizures. She is dysarthric due to Fracture Alveolar bones 2ry to falling during her seizures. MRI Brain is not possible due to her right shoulder metallic pieces. She is receiving IV Ativan 2mg Q 6 hrs PRN Seizures. Objective - Vital Signs/Intake and Output Vital Signs (last 24 hours): Temp Pulse Resp BP Pulse Ox 98.8 F 76 20 115/70 94 L 06/11/17 15:40 06/11/17 15:40 06/11/17 15:40 06/11/17 15:40 06/11/17 15:40 Intake and Output: 06/11/17 06/12/17 18:59 06:59 Intake Total 400 Balance 400 - Medications Medications: Current Medications Acetaminophen (Tylenol 325mg Tab) 650 mg PO Q6 PRN PRN Reason: Pain Last Admin: 06/10/17 10:34 Dose: 650 mg Calcium/Vitamin D (Oscal-D 250 Mg-125 Units Tab) 1 tab PO DAILY [facility] Last Admin: 06/11/17 09:41 Dose: 1 tab Clindamycin HCl (Cleocin) 300 mg PO Q8H [facility] Last Admin: 06/11/17 18:36 Dose: 300 mg Clonazepam (Klonopin) 0.5 mg PO Q6 [facility] Last Admin: 06/11/17 18:33 Dose: 0.5 mg Ergocalciferol (Drisdol 50,000 Intl Units Cap) 1 cap PO Q7D [facility] Fenofibrate (Tricor) 145 mg PO QPM [facility] Last Admin: 06/11/17 18:34 Dose: 145 mg Levetiracetam (Keppra) 1,000 mg PO Q12 [facility] Last Admin: 06/11/17 09:41 Dose: 1,000 mg Levothyroxine Sodium (Synthroid) 100 mcg PO DAILY@0630 [facility] Last Admin: 06/11/17 05:58 Dose: 100 mcg Lorazepam (Ativan) 2 mg IVP Q6H PRN PRN Reason: Seizure activity Last Admin: 06/10/17 22:32 Dose: 2 mg Pneumococcal Polyvalent Vaccine (Pneumovax 23 Vaccine) 0.5 ml IM .ONCE ONE Stop: 06/12/17 10:01 - Labs Labs: 06/11/17 07:17 06/11/17 07:17 Assessment and Plan (1) Fracture, tooth Status: Acute (2) Laceration of tongue Status: Acute (3) Seizure Status: Acute (4) Abscess of external ear Status: Acute (5) Blister Status: Acute (6) Hyperglycemia Status: Acute (7) Anxiety and depression Status: Acute (8) Anxiety and depression Status: Chronic
[2017-06-12] MEDS: Levothyroxine 100 MCG TAB PO SCH (05:42)
[2017-06-12 07:53] VITALS: PULSE 88; RESP 18; TEMP 98.3; O2SAT 96
[2017-06-12] MEDS ORDERED: Pneumococcal 23-Valent Vaccine IM ONE (10:00)
[2017-06-12] MEDS ORDERED: Ergocalciferol 50,000 Intl Units Cap PO SCH (10:00)
[2017-06-12] MEDS: Calcium-Vit D 250 mg-125 Units Tab UD PO SCH (10:24)
[2017-06-12 12:45] VITALS: BP 105/77
--- NOTE | 2017-06-12 15:57 | PN ---
DATE: 06/12/2017 SUBJECTIVE: The patient seems to be doing much better and is complaining of pain on her mouth because the patient had a recent fall; however, the patient did admit that she has not been compliant with the seizure medication, has not been taking it faithfully in weeks especially the Keppra because the patient states that she is afraid to be dependent on it.The patient was explained that she has a seizure problem and needs to take her seizure medication faithfully. She only takes her Klonopin at home p.r.n. which is not enough to prevent her from having breakthrough seizures. Compliance reinforced to the patient to take her Keppra regularly as well as her Klonopin. PHYSICAL EXAMINATION VITAL SIGNS: Temperature is 98.3, pulse is 88, blood pressure is 105/77, respirations 18, oxygen saturation is 96%. GENERAL: The patient is alert and oriented x3, seen in her room with family, doing much better. SKIN: No diaphoresis. HEENT: No headache. No dizziness. Complaining of mouth pain. The patient has a history of fractured tooth. Her lips have been swollen. NECK: Supple. RESPIRATORY: No dyspnea. CARDIOVASCULAR: No chest pain. GASTROINTESTINAL: No nausea, no vomiting. EXTREMITIES: The patient is ambulatory. MUSCULOSKELETAL: Weakness improving. NEUROLOGIC: Alert and oriented x3. GENITOURINARY: No dysuria. MENTAL STATUS EXAMINATION: Well-developed female who looks stated age, oriented x3. No recurrence of seizures noted. Affect is reactive. Speech is spontaneous. Mood is calm. Thought process coherent. Thought content, no overt psychosis. No suicidal or homicidal ideation. Attention and memory seems to be fair. Insight and judgment limited. The patient needs to be more compliant with her seizure medication. Impulse control is fair at this time. IMPRESSION: Anxiety disorder as well as mood disorder secondary to medical problems, history of recurrent depression. PLAN AND RECOMMENDATIONS: The patient is seen and medications reviewed. Continue present management. Continue Klonopin and Keppra as ordered. The patient to follow up with Dr. Toledo. The patient needs to be compliant with her seizure medication and to follow up with her neurologist once discharged. Psych louise, the patient can be discharged to home once cleared medically and neuro. Donovan Bundy MD [facility] # [id number] [facility]
--- NOTE | 2017-06-12 17:13 | CP.PCM.PN ---
Subjective - Date & Time of Evaluation Date of Evaluation: 06/12/17 Time of Evaluation: 17:10 - Subjective Subjective: feels beter no pain no anexiety Objective - Vital Signs/Intake and Output Vital Signs (last 24 hours): Temp Pulse Resp BP Pulse Ox 98.3 F 88 18 105/77 96 06/12/17 07:52 06/12/17 12:45 06/12/17 07:52 06/12/17 12:45 06/12/17 07:52 Intake and Output: 06/12/17 06/12/17 06:59 18:59 Intake Total 400 Balance 400 - Medications Medications: Current Medications Acetaminophen (Tylenol 325mg Tab) 650 mg PO Q6 PRN PRN Reason: Pain Last Admin: 06/10/17 10:34 Dose: 650 mg Calcium/Vitamin D (Oscal-D 250 Mg-125 Units Tab) 1 tab PO DAILY [facility] Last Admin: 06/12/17 10:24 Dose: 1 tab Clindamycin HCl (Cleocin) 300 mg PO Q8H [facility] Last Admin: 06/12/17 16:11 Dose: 300 mg Clonazepam (Klonopin) 0.5 mg PO Q6 [facility] Last Admin: 06/12/17 12:43 Dose: 0.5 mg Ergocalciferol (Drisdol 50,000 Intl Units Cap) 1 cap PO Q7D [facility] Last Admin: 06/12/17 10:25 Dose: 1 cap Fenofibrate (Tricor) 145 mg PO QPM [facility] Last Admin: 06/11/17 18:34 Dose: 145 mg Levetiracetam (Keppra) 1,000 mg PO Q12 [facility] Last Admin: 06/12/17 10:25 Dose: 1,000 mg Levothyroxine Sodium (Synthroid) 100 mcg PO DAILY@0630 [facility] Last Admin: 06/12/17 05:42 Dose: 100 mcg Lorazepam (Ativan) 2 mg IVP Q6H PRN PRN Reason: Seizure activity Last Admin: 06/11/17 22:52 Dose: 2 mg - Labs Labs: 06/11/17 07:17 06/11/17 07:17 - Constitutional Appears: Non-toxic - Head Exam Head Exam: NORMAL INSPECTION Additional comments: abrasion lip and broken teeth - Eye Exam Eye Exam: Normal appearance - ENT Exam ENT Exam: Mucous Membranes Moist - Neck Exam Neck Exam: Full ROM - Respiratory Exam Respiratory Exam: NORMAL BREATHING PATTERN - Cardiovascular Exam Cardiovascular Exam: REGULAR RHYTHM - GI/Abdominal Exam GI & Abdominal Exam: Normal Bowel Sounds - Rectal Exam Rectal Exam: NORMAL INSPECTION - Extremities Exam Extremities Exam: Normal Inspection - Back Exam Back Exam: vertebral tenderness - Neurological Exam Neurological Exam: Normal Gait - Psychiatric Exam Psychiatric exam: Normal Affect - Skin Skin Exam: Normal Color Assessment and Plan - Assessment and Plan (Free Text) Assessment: s/p seizer s/p face trauma brken teeth and fascial bone Plan: [facility]
--- NOTE | 2017-06-13 00:07 | CP.PCM.PN ---
Subjective - Date & Time of Evaluation Date of Evaluation: 06/12/17 Time of Evaluation: 17:20 - Subjective Subjective: Patient is discharged on Po Keppra 1000 mg Q 12 hrs. She is stable. she will be followed by her PCP and her dentist Objective - Vital Signs/Intake and Output Vital Signs (last 24 hours): Temp Pulse Resp BP Pulse Ox 98.3 F 88 18 105/77 96 06/12/17 07:52 06/12/17 12:45 06/12/17 07:52 06/12/17 12:45 06/12/17 07:52 Intake and Output: 06/12/17 06/13/17 18:59 06:59 Intake Total 400 Balance 400 - Labs Labs: 06/11/17 07:17 06/11/17 07:17 Assessment and Plan (1) Fracture, tooth Status: Acute (2) Laceration of tongue Status: Acute (3) Seizure Status: Acute (4) Abscess of external ear Status: Acute (5) Blister Status: Acute (6) Hyperglycemia Status: Acute (7) Anxiety and depression Status: Acute (8) Anxiety and depression Status: Chronic
== END 2017-06-12 18:00 | disposition home or self-care (01) | DRG 889 ==
LOC: C.ER 21:14 → C.6T 06-10 00:19
PROVIDERS: ADMIT Internal Medicine; ATTEND Internal Medicine
DX: G40.409 Other generalized epilepsy and epileptic syndromes, not intractable, without status epilepticus (principal); E05.90 Thyrotoxicosis, unspecified without thyrotoxic crisis or storm; E11.65 Type 2 diabetes mellitus with hyperglycemia; F06.30 Mood disorder due to known physiological condition, unspecified; W18.39XA Other fall on same level, initial encounter; E55.9 Vitamin D deficiency, unspecified; E58 Dietary calcium deficiency; H60.00 Abscess of external ear, unspecified ear; F41.9 Anxiety disorder, unspecified; R01.1 Cardiac murmur, unspecified; S01.512A Laceration without foreign body of oral cavity, initial encounter; F17.210 Nicotine dependence, cigarettes, uncomplicated; Z91.14 Patient's other noncompliance with medication regimen; S02.5XXA Fracture of tooth (traumatic), initial encounter for closed fracture; F33.9 Major depressive disorder, recurrent, unspecified

== ENCOUNTER 2018-04-05 16:21 | Emergency (ER) | payer MEDICAID ==
[2018-04-05 16:32] VITALS: BMI 20.7
[2018-04-05 16:34] VITALS: RESP 18; TEMP 99.1
--- NOTE | 2018-04-05 17:33 | C.PDOC ---
History Of Present Illness <Afshan Hatfield - Last Filed: 04/05/18 19:11> <Dee Bonilla - Last Filed: 04/05/18 20:06> 42 y/o female presents to ED with c/o intermittent sharp left lower quadrant pain for 2 days associated with multiple episodes of diarrhea and vomiting. Patient reports fever of 101 and denies dysuria, vaginal bleeding, vaginal discharge or any other complaints at this time. (Afshan Hatfield) History Per: Patient History/Exam Limitations: no limitations Onset/Duration Of Symptoms: Days Current Symptoms Are (Timing): Still Present Location Of Pain/Discomfort: LLQ <Afshan Hatfield - Last Filed: 04/05/18 19:11> <Dee Bonilla - Last Filed: 04/05/18 20:06> Time Seen by Provider: 04/05/18 16:46 Chief Complaint (Nursing): Abdominal Pain Past Medical History Reviewed: Historical Data, Nursing Documentation, Vital Signs - Medical History PMH: Anxiety, Cardia Arrhythmia (heart murmurs), Depression, Diabetes, Hyperthyroidism, Seizures Surgical History: (2) Other Surgeries: tubal ligation Family History: States: No Known Family Hx - Social History Hx Tobacco Use: Yes Hx Alcohol Use: No Hx Substance Use: No - Immunization History Hx Tetanus Toxoid Vaccination: Yes Hx Influenza Vaccination: Yes Hx Pneumococcal Vaccination: No <Afshan Hatfield - Last Filed: 04/05/18 19:11> Vital Signs: Last Vital Signs Temp 99.1 F 04/05/18 16:32 Pulse 75 04/05/18 16:32 Resp 18 04/05/18 16:32 BP 142/92 H 04/05/18 16:32 Pulse Ox 99 04/05/18 19:12 - [facility] DRUG DETOXIFICATION (02/28/15) Review Of Systems Constitutional: Negative for: Fever, Chills Gastrointestinal: Positive for: Vomiting, Abdominal Pain, Diarrhea. Negative for: Hematochezia, Hematemesis Genitourinary: Negative for: Dysuria, Vaginal Discharge, Vaginal Bleeding Skin: Negative for: Rash <Afshan Hatfield - Last Filed: 04/05/18 19:11> Physical Exam - Physical Exam Appears: Non-toxic, Other (Uncomfortable) Skin: Warm, Dry, No Rash Head: Atraumatic, Normacephalic Eye(s): bilateral: Normal Inspection Oral Mucosa: Moist Neck: Normal ROM, Supple Cardiovascular: Rhythm Regular Respiratory: Normal Breath Sounds, No Rales, No Rhonchi, No Wheezing Gastrointestinal/Abdominal: Soft, Tenderness (LLQ), No Guarding, No Rebound Back: No CVA Tenderness, No Paraspinal Tenderness Neurological/Psych: Oriented x3, Normal Speech, Normal Cognition <Afshan Hatfield - Last Filed: 04/05/18 19:11> ED Course And Treatment - Laboratory Results Result Diagrams: 04/05/18 17:55 04/05/18 17:55 O2 Sat by Pulse Oximetry: 99 (RA) Pulse Ox Interpretation: Normal <Afshan Hatfield - Last Filed: 04/05/18 19:11> - Laboratory Results Result Diagrams: 04/05/18 17:55 04/05/18 17:55 Pulse Ox Interpretation: Normal Reevaluation Time: 19:59 Reassessment Condition: Improved <Dee Bonilla - Last Filed: 04/05/18 20:06> Medical Decision Making <Afshan Hatfield - Last Filed: 04/05/18 19:11> <Dee Bonilla - Last Filed: 04/05/18 20:06> Medical Decision Making: pt with elevated glucose; reports treated for dm with metformin in apst but pmd stopped meds. (Afshan Hatfield) Disposition - Disposition Disposition Time: 19:12 <Afshan Hatfield - Last Filed: 04/05/18 19:11> Counseled Patient/Family Regarding: Studies Performed, Diagnosis, Need For Followup, Rx Given <Dee Bonilla - Last Filed: 04/05/18 20:06> - Disposition Referrals: [facility] [Outside] [facility] [Outside] Disposition: HOME/ ROUTINE Condition: FAIR Additional Instructions: Please return if symptoms recur Prescriptions: Metronidazole [Flagyl] 500 mg PO TID #21 tablet Ondansetron ODT [Zofran ODT] 1 odt PO BID PRN #10 odt PRN Reason: Nausea/Vomiting Instructions: Pancreatitis (DC) Forms: [employer] (Luxembourgish) - Clinical Impression Clinical Impression: Abdominal pain, Pancreatitis - PA / BOTTOM LINER / Resident Statement MD/DO has reviewed & agrees with the documentation as recorded. - Scribe Statement The provider has reviewed the documentation as recorded by the Scribe <Afshan Hatfield - Last Filed: 04/05/18 19:11> <Dee Bonilla - Last Filed: 04/05/18 20:06> - Scribe Statement Franchesca Mejia All medical record entries made by the Scribe were at my direction and personally dictated by me. I have reviewed the chart and agree that the record accurately reflects my personal performance of the history, physical exam, medical decision making, and the department course for this patient. I have also personally directed, reviewed, and agree with the discharge instructions and disposition. (Afshan Hatfield) Physician Patient Turnover Patient Signed Over To: Dee Bonilla Handoff Comments: f/u ct scan and dispo accordingly <Afshan Hatfield - Last Filed: 04/05/18 19:11>
[2018-04-05] MEDS ORDERED: Iohexol 240 (50 ml) PO ONE (17:36)
[2018-04-05] MEDS ORDERED: Sodium Chloride 0.9% 1,000 ML IV ONE (17:37)
[2018-04-05] MEDS ORDERED: Sodium Chloride 0.9% 1,000 ML ONE (17:57)
[2018-04-05 17:58] LABS: BASO # 0.1 K/uL (0.0-0.2); BASO % 0.5 % (0.0-2.0); EOS # 0.1 K/uL (0.0-0.7); EOS % 0.6 % (0.0-4.0); HEMOGLOBIN 13.2 g/dL (11.0-16.0); LYMPH # 5.3 K/uL (1.0-4.3); LYMPH % 44.3 % (20.0-40.0); MEAN CELL VOLUME 94.1 fL (81.0-99.0); MEAN CORPUSCULAR HEMOGLOBIN 32.8 pg (27.0-31.0); MEAN CORPUSCULAR HGB CONC 34.9 g/dL (33.0-37.0); MEAN PLATELET VOLUME 7.8 fL (7.2-11.7); MONO # 0.7 K/uL (0.0-0.8); MONO % 6.2 % (0.0-10.0); NEUT # 5.8 K/uL (1.8-7.0); NEUT % 48.4 % (50.0-75.0); RBC 4.03 Mil/uL (3.80-5.20); RED CELL DISTRIBUTION WIDTH 14.1 % (11.5-14.5)
[2018-04-05 18:08] LABS: SQUAMOUS EPITHIAL 2 /hpf (0-5); URINE BACTERIA RARE (<OCC); URINE BILIRUBIN NEGATIVE (NEGATIVE); URINE BLOOD NEGATIVE (NEGATIVE); URINE CLARITY Clear (Clear); URINE COLOR Yellow (YELLOW); URINE GLUCOSE (UA) 3+ mg/dL (Normal); URINE LEUKOCYTE ESTERASE NEG Leu/uL (Negative); URINE PROTEIN 2+ mg/dL (NEGATIVE); URINE UROBILINOGEN NORMAL mg/dL (0.2-1.0)
[2018-04-05 18:11] LABS: ALB/GLOB RATIO 1.4 (1.0-2.1); ALBUMIN 4.2 g/dL (3.5-5.0); ALT/SGPT 21 U/L (9-52); AST/SGOT 20 U/L (14-36); BLOOD UREA NITROGEN 7 mg/dL (7-17); CALCIUM 9.2 mg/dl (8.6-10.4); GFR AFRICAN-AMERICAN > 60; GFR NON-AFRICAN AMERICAN > 60; LIPASE 477 U/L (23-300)
[2018-04-05] MEDS ORDERED: Iohexol 240 (50 ml) ONE (18:14)
--- NOTE | 2018-04-05 19:55 | CT ---
EXAM: CT Abdomen and Pelvis Without Intravenous Contrast EXAM DATE/TIME: 04/05/2018 5:35 PM CLINICAL HISTORY: 42 years old, female; Pain; Abdominal pain; Flank; Left lower quadrant (llq); Additional info: Fever, llq pain, vomiting. Diarrhea TECHNIQUE: Axial computed tomography images of the abdomen and pelvis without intravenous contrast. All CT scans at this facility use one or more dose reduction techniques, viz.: automated exposure control; ma/kV adjustment per patient size (including targeted exams where dose is matched to indication; i.e. head); or iterative reconstruction technique. Coronal and sagittal reformatted images were created and reviewed. COMPARISON: There are no prior studies for comparison. FINDINGS: Lung bases: The heart is mildly enlarged. There is minimal atelectasis at the lung bases. There is nodular scarring at the right base ABDOMEN: Liver: unremarkable Gallbladder and bile ducts: unremarkable Pancreas: unremarkable Spleen: unremarkable Adrenals: unremarkable Kidneys and ureters: There is a tiny nonobstructing left renal stone. There is mild left pelvocaliectasis and ureterectasis. There no ureteral stones.Right kidney and ureter are unremarkable. Stomach and bowel: Stomach is incompletely distended. Rotation is normal. There is contrast and air throughout the small bowel. There is no small bowel obstruction. Ileocecal region is unremarkable. Appendix and terminal ileum are unremarkable.Colon is incompletely distended which limits evaluation. There is minimal diverticulosis PELVIS: Appendix: See stomach and bowel Bladder: unremarkable Reproductive: Uterus and adnexal structures are unremarkable. ABDOMEN and PELVIS: Intraperitoneal space: There is no free air or free fluid. Bones/joints: There are no acute osseous abnormalities. Soft tissues: There is a very small fat containing umbilical hernia Vasculature: Vascular structures are unremarkable. Lymph nodes: There is shotty adenopathy. IMPRESSION: No acute solid visceral or bowel abnormality, no obstructing renal or ureteral stones; no CT findings of appendicitis or diverticulitis Additional nonemergent findings as described above.
[2018-04-05 20:18] VITALS: BP 168/89; PULSE 71; O2SAT 95
== END 2018-04-05 20:50 | disposition home or self-care (01) ==
LOC: C.ER 16:21
DX: K85.90 Acute pancreatitis without necrosis or infection, unspecified (principal); R10.32 Left lower quadrant pain; E11.9 Type 2 diabetes mellitus without complications; Z72.0 Tobacco use
CPT/HCPCS: 74176; 80053; 81001; 83690; 85025; 96361; 96374; 99284; J2270; J7030; Q9966

== ENCOUNTER 2018-08-07 14:55 | Inpatient (IN) | payer MEDICAID ==
[2018-08-07 14:56] VITALS: BMI 20.7
--- NOTE | 2018-08-07 15:08 | C.PDOC ---
History Of Present Illness 43 y/o female presents to the ER requesting detox from Percocets. 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 Denies having suicidal ideation, homicidal ideation, and active physical complaints. Of note, patient is prescreened for detox. Time Seen by Provider: 08/07/18 15:06 Chief Complaint (Nursing): Substance Abuse History Per: Patient History/Exam Limitations: no limitations Past Medical History Reviewed: Historical Data, Nursing Documentation, Vital Signs Vital Signs: Last Vital Signs Temp 98.8 F 08/07/18 14:57 Pulse 108 H 08/07/18 14:57 Resp 20 08/07/18 14:57 BP 152/84 H 08/07/18 14:57 Pulse Ox 97 08/07/18 14:57 - Medical History PMH: Anxiety, Cardia Arrhythmia (heart murmurs), Depression, Diabetes, Hyperthyroidism, Seizures Denies: Hepatitis, HIV, HTN, Chronic Kidney Disease, Sexually Transmitted Disease Surgical History: (2) - [facility] DRUG DETOXIFICATION (02/28/15) Family History: States: No Known Family Hx - Social History Hx Tobacco Use: Yes Hx Alcohol Use: No Hx Substance Use: Yes - Immunization History Hx Tetanus Toxoid Vaccination: Yes Hx Influenza Vaccination: Yes Hx Pneumococcal Vaccination: No Review Of Systems Except As Marked, All Systems Reviewed And Found Negative. Constitutional: Negative for: Fever, Chills Psych: Negative for: Suicidal ideation Physical Exam - Physical Exam Appears: Non-toxic, No Acute Distress, Other (pleasant, cooperative) Skin: Normal Color, Warm, Dry Head: Atraumatic, Normacephalic Eye(s): bilateral: Other (pinpoint pupils) Nose: Normal Oral Mucosa: Moist Neck: Supple Chest: Symmetrical Cardiovascular: Rhythm Regular Respiratory: Normal Breath Sounds, No Rales, No Rhonchi, No Wheezing Gastrointestinal/Abdominal: Normal Exam, Soft, No Tenderness, No Guarding, No Rebound Neurological/Psych: Oriented x3, Normal Speech ED Course And Treatment - Laboratory Results Result Diagrams: 08/07/18 15:25 08/07/18 15:25 Lab Interpretation: Abnormal (tox + marilyn's, Benzo's, neg opiates) O2 Sat by Pulse Oximetry: 97 (RA) Pulse Ox Interpretation: Normal Reevaluation Time: 19:00 Reassessment Condition: Unchanged Medical Decision Making Medical Decision Making: Plan: --Labs --UA --HCG Qual. + benzo's due to chronic klonopin use as prescribed ? opiate w/d as tox neg for op's Disposition Doctor Will See Patient In The: Hospital Counseled Patient/Family Regarding: Studies Performed, Diagnosis - Disposition Disposition: HOSPITALIZED Disposition Time: 19:01 Condition: GOOD Forms: [facility] (Eritrean) - Clinical Impression Clinical Impression: At risk for abuse of opiates - Scribe Statement The provider has reviewed the documentation as recorded by the Danielle Cook Provider Attestation: All medical record entries made by the Danielle were at my direction and personally dictated by me. I have reviewed the chart and agree that the record accurately reflects my personal performance of the history, physical exam, medical decision making, and the department course for this patient. I have also personally directed, reviewed, and agree with the discharge instructions and disposition.
[2018-08-07 15:29] LABS: BASO # 0.1 K/uL (0.0-0.2); BASO % 0.9 % (0.0-2.0); EOS # 0.1 K/uL (0.0-0.7); EOS % 1.1 % (0.0-4.0); HEMOGLOBIN 12.7 g/dL (11.0-16.0); LYMPH # 4.8 K/uL (1.0-4.3); MEAN CORPUSCULAR HGB CONC 34.4 g/dL (33.0-37.0); MEAN PLATELET VOLUME 7.7 fL (7.2-11.7); MONO # 0.6 K/uL (0.0-0.8); MONO % 5.3 % (0.0-10.0); NEUT # 4.9 K/uL (1.8-7.0); NEUT % 46.7 % (50.0-75.0); RBC 3.74 Mil/uL (3.80-5.20); RED CELL DISTRIBUTION WIDTH 14.4 % (11.5-14.5); WHITE BLOOD COUNT 10.4 K/uL (4.8-10.8)
[2018-08-07 15:30] LABS: MEAN CELL VOLUME 98.9 fL (81.0-99.0)
[2018-08-07 15:37] LABS: HCG,QUALITATIVE URINE NEGATIVE (NEGATIVE)
[2018-08-07 15:42] LABS: ALB/GLOB RATIO 1.7 (1.0-2.1); ALBUMIN 4.3 g/dL (3.5-5.0); ALT/SGPT 25 U/L (9-52); AST/SGOT 10 U/L (14-36); BLOOD UREA NITROGEN 11 mg/dL (7-17); CALCIUM 9.4 mg/dl (8.6-10.4); GFR NON-AFRICAN AMERICAN > 60; SQUAMOUS EPITHIAL 1 /hpf (0-5); URINE BILIRUBIN NEGATIVE (NEGATIVE); URINE BLOOD NEGATIVE (NEGATIVE); URINE CLARITY Clear (Clear); URINE COLOR Straw (YELLOW); URINE GLUCOSE (UA) 3+ mg/dL (Normal); URINE LEUKOCYTE ESTERASE NEG Leu/uL (Negative); URINE PROTEIN NEGATIVE (NEGATIVE); URINE UROBILINOGEN NORMAL mg/dL (0.2-1.0)
[2018-08-07 16:19] LABS: OPIATES, UR NEGATIVE (NEGATIVE); PHENCYCLIDINE, UR NEGATIVE (NEGATIVE)
[2018-08-07 16:21] LABS: BARBITURATES, UR POSITIVE (NEGATIVE); BENZODIAZEPINES, UR POSITIVE (NEGATIVE)
--- NOTE | 2018-08-07 19:14 | PCM.BM ---
<Jazz Zendejas - Last Filed: 08/07/18 19:13> Treatment Plan Problems - Problems identified on initial assessmt potiential for opiate withdrawal Date Initiated: 08/07/18 Time Initiated: 19:13 Assessment reference: NA Status: Active Treatment assets and liabiliti Patient Assests: ADL independent Patient Liabilities: substance abuse, medical problems - Milieu Protocol Maintain good personal hygiene: daily Encourage regular showers, daily Remind patient to perform daily oral care, daily Assist patient to perform ADL's Maintain personal safety: every shift Educate patient to report safety concerns to staff, every shift Monitor environment for contraband/sharps Medication safety: Monitor for expected outcome, potential side effects: every shift, Assess barriers to learning: every shift, Assess readiness for medication education: every shift <Juan Jose Moses - Last Filed: 08/09/18 08:31> - Diagnosis (1) Opioid use disorder, severe, dependence Status: Acute Interventions: 08/09/18 08:31 * Assess 7x/week regarding severity of withdrawal * Educate regarding risks, benefits, side effects and alternatives of medications * Use Motivational Interviewing for abstinence * Use CBT for relapse prevention * Medication management for withdrawal symptoms * Encourage medication assisted treatment * <Madeline Nuno - Last Filed: 08/09/18 09:42> Family Contact Family involvement: [place]/SO not involved - Goals for Treatment Patient goals for treatment: Complete detox and transition to an inpatient rehab. Discharge/Continuing Care - Education Needs Education Needs: Patient Medication, Patient Diagnosis/Disease Process, Patient Coping Skills, Patient Anger Management skills, Patient Placement options, Patient Community resources - Discharge Discharge Criteria: No longer exhibiting s/s of withdrawal, Reduction of target symptoms Discharge to:: Substance Abuse Rehab - Treatment Team Participation Patient/Family/SO Statement: 08/09/18 09:42 "[facility] Discussed with Family/SO: No Was Patient/Family/SO present at Treatment Team Meeting: Yes
[2018-08-07] MEDS ORDERED: Buprenorphine Hydrochloride 2 mg SL ONE ×2 (20:01→21:18)
[2018-08-07] MEDS ORDERED: Buprenorphine Hydrochloride 2 mg SL SCH (21:01)
[2018-08-08] MEDS ORDERED: Aluminum Hydroxide/Magnesium Hydroxide Susp (30 mL) PO PRN (08:52)
[2018-08-08] MEDS: Buprenorphine Hydrochloride 2 mg SL SCH (10:13)
[2018-08-08] MEDS: Levothyroxine 100 MCG TAB PO SCH (10:33)
[2018-08-08] MEDS: Magnesium Oxide 400 mg Tab UD PO SCH ×2 (10:33→17:12)
[2018-08-08] MEDS: Calcium-Vit D 250 mg-125 Units Tab UD PO SCH (10:35)
--- NOTE | 2018-08-08 13:50 | PCM.PSYCH ---
Addendum entered and electronically signed by Juan Jose Moses MD 08/09/18 08:32: I attest that I have interviewed the pt and reviewed the chart and participated and agree with the following assessment and plan. Original Note: Initial Psychiatric Evaluation - Initial Psychiatric Evaluation Type of Admission: Voluntary Legal Status: Capacity Chief Complaint (in patient's own words): "I want to stop using Percocet." History of Present Illness and Precipitating Events: Patient seen, chart reviewed, case discussed with staff. Ms. Cardoso is a single 43 year old female PMH depression, diabetes, hypothyroidism, seizures comes to detox from Percocet. Reported not feeling depressed, no sleep or appetite problems, no SI/HI and no h/o suicidal attempts. Patient denied any psychotic, manic or anxiety symptoms currently or in the past. No h/o psychiatric admissions in the past. Reports abusing 10-12 Percocet since her shoulder repair surgery in 2012. Last use was day prior to admission. She has three children. She was here at [facility] [place] in 2014 and was sober for 11.5 months after with IOP. Her eldest is 24 with mental disability and lives with patient and her mother. Her two younger children (8yo, 12yo) are with sister who has temporary custody. Smokes 1ppd cigs, denies alcohol and other illicit drugs. Denies SI/HI, AVH. Is currently experiencing withdrawal Sx: weakness, aches, diarrhea. PMH: diabetes, hypothyroidism, seizures Med: Klonopin, Paroxetine, Restoril, Halcion, Keppra All: ASA, PCN, zeus Narayanan saw her in Jun, next appointment Nov FamHx: Sister in law - cocaine Legal: DYFS for custody issues last year ED: BAL <10, UDS + for benzos and barbs, - for opiates Dispo: patient is requesting skilled nursing inpatient Current Medications: Active Medications Generic Name Dose Route Start Last Admin Trade Name Freq PRN Reason Stop Dose Admin Al Hydrox/Mg Hydrox/Simethicone 30 ml 08/08/18 08:52 Maalox 30 Ml PO TID PRN Indigestion / Heartburn Buprenorphine HCl 8 mg 08/08/18 10:00 08/08/18 10:13 Subutex SL 08/13/18 09:59 8 mg DAILY GERMAINE Administration Taper Calcium/Vitamin D 1 tab 08/08/18 10:00 08/08/18 10:35 Oscal-D 250 Mg-125 Units Tab PO 1 tab DAILY GERMAINE Administration Clonidine HCl 0.1 mg 08/08/18 08:52 Catapres PO Q8 PRN COWS Score More or Equal to 5 Escitalopram Oxalate 5 mg 08/08/18 10:00 08/08/18 10:12 Lexapro PO 5 mg DAILY GERMAINE Administration Gabapentin 600 mg 08/08/18 10:00 08/08/18 13:06 Neurontin PO 600 mg TID GERMAINE Administration Hydroxyzine HCl 50 mg 08/08/18 09:38 Atarax PO Q6H PRN Anxiety Influenza Virus Vaccine 60 mcg 08/09/18 09:00 Fluzone Quad [id number] IM 08/09/18 09:01 .ONCE ONE Levetiracetam 500 mg 08/07/18 20:15 08/08/18 10:12 Keppra PO 500 mg BID GERMAINE Administration Levothyroxine Sodium 100 mcg 08/08/18 10:00 08/08/18 10:33 Synthroid PO 100 mcg DAILY GERMAINE Administration Loperamide HCl 2 mg 08/08/18 08:52 Imodium PO Q8 PRN Diarrhea Magnesium Oxide 400 mg 08/08/18 10:00 08/08/18 10:33 Mag-Ox PO 400 mg BID GERMAINE Administration Nicotine 1 patch 08/08/18 10:00 08/08/18 10:12 Nicoderm Cq TD 1 patch DAILY GERMAINE Administration Ondansetron HCl 4 mg 08/08/18 08:52 Zofran Tab PO Q8 PRN Nausea/Vomiting Pneumococcal Polyvalent Vaccine 0.5 ml 08/09/18 09:00 Pneumovax 23 Vaccine IM 08/09/18 09:01 .ONCE ONE Trazodone HCl 50 mg 08/07/18 20:02 08/07/18 21:21 Desyrel PO 50 mg HS PRN Administration insmnia Past Psychiatric History - Past Psychiatric History Pertinent Medical Hx (Current Medical&Sleep Prob, Allergies): Allergies Allergy/AdvReac Type Severity Reaction Status Date / Time aspirin Allergy ITCHING Verified 08/07/18 15:01 Penicillins Allergy RASH Verified 08/07/18 15:01 shrimp Allergy RASH Verified 08/07/18 15:01 Clonazepam [Klonopin] 0.5 mg PO QID PRN 06/10/17 Calcium Carbonate/Vitamin D [Oscal-D 250 mg-125 Units Tab] 1 tab PO DAILY tab 06/12/17 levETIRAcetam [Keppra] 1,000 mg PO Q12 #60 tab 06/12/17 Levothyroxine [Synthroid] 100 mcg PO DAILY 04/05/18 Ondansetron ODT [Zofran ODT] 1 odt PO BID PRN #10 odt 04/05/18 Oxycodone HCl/Acetaminophen [Percocet 10-325 mg Tablet] 1 each PO QID 04/05/18 Review of Systems - Psychiatric Psychiatric: Abnormal Sleep Pattern, Anhedonia, Confusion, Difficulty Concentrating. absent: Hallucinations, Homicidal Ideation, Suicidal Ideation Mental Status Examination - Personal Presentation Personal Presentation: Looks older than stated age - Affect Affect: Constricted - Motor Activity Motor Activity: Calm - Reliability in Providing Information Reliability in Providing Information: Good - Speech Speech: Organized - Mood Mood: Depressed - Formal Thought Process Formal Thought Process: No Impairment - Cognitive Functions Orientation: Person, Place, Situation, Time Sensorium: Alert Attention/Concentration: Attentive Estimate of Intelligence: Average Judgement: Imparied, as evidence by: Lack of insight into illness Memory: Recent intact, as evidence by: Ability to recall events of the day, Remote intact, as evidenced by: Abilit to recall sig. life events - Risk Risk: Withdrawal, Diminished functioning - Strength & Assets Inventory Strength & Assets Inventory: Cooperative DSM 5 DX - DSM 5 DSM 5 Diagnosis: Opioid use disorder - severe Opioid withdrawal - Recommended/Plan of Treatment Treatment Recommendations and Plan of Treatment: Taper with Subutex Atarax, Lexapro, Mag Ox. Gabapentin for augmentation Keppra, Levothyroxine as per home med. As needed meds. All risks, benefits, and alternatives of the meds discussed, and the patient agreed and understood. Attend groups and activities. Supportive therapy and psychoeducation. ND for abstinence. CBT for relapse prevention. Encourage MAT. Refer to rehab or IOP, and self-help groups. Smoking cessation with ND. Nicotine patch daily. 34 min Projected ELOS: 3-5 days - Smoking Cessation Smoking Cessation Initiated: Yes
[2018-08-09] MEDS ORDERED: Pneumococcal 23-Valent Vaccine IM ONE (09:00)
[2018-08-09] MEDS ORDERED: Influenza Vaccine 60 MCG/0.5 ML SYR (3 yr & up) IM ONE (09:00)
[2018-08-09] MEDS: Buprenorphine Hydrochloride 2 mg SL SCH (09:14)
[2018-08-09] MEDS: Calcium-Vit D 250 mg-125 Units Tab UD PO SCH (09:14)
[2018-08-09] MEDS: Magnesium Oxide 400 mg Tab UD PO SCH ×2 (09:14→17:01)
[2018-08-09] MEDS: Levothyroxine 100 MCG TAB PO SCH (09:14)
[2018-08-09] MEDS ORDERED: (Novolog) Insulin Aspart, Recombinant 100 u/ml 10 ml vial SC ONE (19:30)
[2018-08-09] MEDS: (Novolog) Insulin Aspart, Recombinant 100 u/ml 10 ml vial SC SCH (21:43)
--- NOTE | 2018-08-09 22:11 | PCM.PYCHPN ---
Psychiatric Progress Note - Psychiatric Progress Note Patient seen today, length of contact: 15 min Patient Chief Complaint: I am withdrawing.' Problems Identified/Issues Discussed: Patient seen and evaluated, chart reviewed and discussed with the nurse. Patient reports withdrawal symptoms including, cramps, nausea, anxiety and headaches. Patient reports some anxiety but denies any suicidal ideation or homicidal ideation. She denies any auditory or visual hallucinations. She is tolerating the withdrawal medications and denies any side effects. Supportive therapy and psychoeducation were given. Medication Change: Yes Medical Record Reviewed: Yes Mental Status Examination - Cognitive Function Orientation: Person, Place, Situation, Time Memory: Intact Attention: WNL Concentration: Poor Association: WNL Fund of Knowledge: Poor - Mood Mood: Depressed - Affect Affect: Constricted - Speech Speech: Soft - Formal Thought Process Formal Thought Process: No Impairment - Suicidal Ideation Suicidal Ideation: No - Homicidal Ideation Homicidal Ideation: No Goal/Treatment Plan - Goal/Treatment Plan Need for Continued Stay: Severe depression anxiety, Severe functional impairment Progress Toward Problem(s) and Goals/Treatment Plan: Opioid use disorder - severe Opioid withdrawal Taper with Subutex Atarax, Lexapro, Mag Ox. Gabapentin for augmentation Keppra, Levothyroxine as per home med. As needed meds. All risks, benefits, and alternatives of the meds discussed, and the patient agreed and understood. Attend groups and activities. Supportive therapy and psychoeducation. HI for abstinence. CBT for relapse prevention. Encourage MAT. Refer to rehab or IOP, and self-help groups. Smoking cessation with HI. Nicotine patch daily. - Smoking Cessation Smoking Cessation Initiated: No
[2018-08-10] MEDS: (Novolog) Insulin Aspart, Recombinant 100 u/ml 10 ml vial SC SCH ×4 (09:18→22:13)
[2018-08-10] MEDS: Magnesium Oxide 400 mg Tab UD PO SCH ×2 (09:19→17:06)
[2018-08-10] MEDS: Calcium-Vit D 250 mg-125 Units Tab UD PO SCH (09:19)
[2018-08-10] MEDS: Buprenorphine Hydrochloride 2 mg SL SCH (09:24)
[2018-08-10] MEDS: Levothyroxine 100 MCG TAB PO SCH (10:43)
[2018-08-10] MEDS ORDERED: Buprenorphine Hydrochloride 2 mg SL ONE (12:04)
--- NOTE | 2018-08-10 13:35 | PCM.PYCHPN ---
Psychiatric Progress Note - Psychiatric Progress Note Patient seen today, length of contact: 17 min Patient Chief Complaint: "I need more meds" Problems Identified/Issues Discussed: The pt is seen, chart reviewed, case discussed with staff. The pt is compliant with medications and reports no side-effects. Symptoms are improving but needs more time to stabilize. After care discussed, support and psychoeducation given. Medication Change: Yes (detox changes daily) Medical Record Reviewed: Yes Mental Status Examination - Cognitive Function Orientation: Person, Place, Situation, Time Memory: Intact Attention: WNL Concentration: Poor Association: WNL Fund of Knowledge: Poor - Mood Mood: Depressed - Affect Affect: Constricted - Speech Speech: Soft - Formal Thought Process Formal Thought Process: No Impairment - Suicidal Ideation Suicidal Ideation: No - Homicidal Ideation Homicidal Ideation: No Goal/Treatment Plan - Goal/Treatment Plan Need for Continued Stay: Severe depression anxiety, Discharge may exacerbated symptoms, Severe functional impairment Progress Toward Problem(s) and Goals/Treatment Plan: Continue medications Support and psychoeducation daily Attend groups and activities daily After care planning by counselors Consider MAT and rehab
[2018-08-11] MEDS: Levothyroxine 100 MCG TAB PO SCH (05:56)
[2018-08-11] MEDS: (Novolog) Insulin Aspart, Recombinant 100 u/ml 10 ml vial SC SCH ×4 (08:27→21:06)
[2018-08-11] MEDS: Calcium-Vit D 250 mg-125 Units Tab UD PO SCH (09:16)
[2018-08-11] MEDS: Magnesium Oxide 400 mg Tab UD PO SCH ×2 (09:16→17:01)
[2018-08-11] MEDS ORDERED: Buprenorphine Hydrochloride 2 mg SL ONE (10:00)
--- NOTE | 2018-08-11 11:02 | PCM.PYCHPN ---
Psychiatric Progress Note - Psychiatric Progress Note Patient seen today, length of contact: 17 min Patient Chief Complaint: I am feeling little better.' Problems Identified/Issues Discussed: Patient seen and evaluated, chart reviewed and discussed with the nurse. Patient reports some improvement in her withdrawal symptoms. Patient reports some anxiety but denies any suicidal ideation or homicidal ideation. She denies any auditory or visual hallucinations. She is tolerating the withdrawal medications and denies any side effects. Supportive therapy and psychoeducation were given. Medication Change: Yes (detox changes daily) Medical Record Reviewed: Yes Mental Status Examination - Cognitive Function Orientation: Person, Place, Situation, Time Memory: Intact Attention: WNL Concentration: WNL Association: WNL Fund of Knowledge: Poor - Mood Mood: Depressed - Affect Affect: Constricted - Speech Speech: Soft - Formal Thought Process Formal Thought Process: No Impairment - Suicidal Ideation Suicidal Ideation: No - Homicidal Ideation Homicidal Ideation: No Goal/Treatment Plan - Goal/Treatment Plan Need for Continued Stay: Severe depression anxiety, Discharge may exacerbated symptoms, Severe functional impairment Progress Toward Problem(s) and Goals/Treatment Plan: Opioid use disorder - severe Opioid withdrawal Taper with Subutex Atarax, Lexapro, Mag Ox. Gabapentin for augmentation Keppra, Levothyroxine as per home med. As needed meds. All risks, benefits, and alternatives of the meds discussed, and the patient agreed and understood. Attend groups and activities. Supportive therapy and psychoeducation. NE for abstinence. CBT for relapse prevention. Encourage MAT. Refer to rehab or IOP, and self-help groups. Smoking cessation with NE. Nicotine patch daily.
[2018-08-12] MEDS: Levothyroxine 100 MCG TAB PO SCH (06:05)
[2018-08-12 06:31] VITALS: RESP 18
--- NOTE | 2018-08-12 07:50 | PCM.PYCHPN ---
Psychiatric Progress Note - Psychiatric Progress Note Patient seen today, length of contact: 17 min Patient Chief Complaint: I am feeling little better.' Problems Identified/Issues Discussed: Patient seen and evaluated, chart reviewed and discussed with the nurse. Patient reports some improvement in her withdrawal symptoms. Patient reports some anxiety but denies any suicidal ideation or homicidal ideation. She denies any auditory or visual hallucinations. She is tolerating the withdrawal medications and denies any side effects. Supportive therapy and psychoeducation were given. Medication Change: Yes (detox changes daily) Medical Record Reviewed: Yes Mental Status Examination - Cognitive Function Orientation: Person, Place, Situation, Time Memory: Intact Attention: WNL Concentration: WNL Association: WNL Fund of Knowledge: Poor - Mood Mood: Depressed - Affect Affect: Constricted - Speech Speech: Soft - Formal Thought Process Formal Thought Process: No Impairment - Suicidal Ideation Suicidal Ideation: No - Homicidal Ideation Homicidal Ideation: No Goal/Treatment Plan - Goal/Treatment Plan Need for Continued Stay: Severe depression anxiety, Discharge may exacerbated symptoms, Severe functional impairment Progress Toward Problem(s) and Goals/Treatment Plan: Opioid use disorder - severe Opioid withdrawal Taper with Subutex Atarax, Lexapro, Mag Ox. Gabapentin for augmentation Keppra, Levothyroxine as per home med. As needed meds. All risks, benefits, and alternatives of the meds discussed, and the patient agreed and understood. Attend groups and activities. Supportive therapy and psychoeducation. [place] for abstinence. CBT for relapse prevention. Encourage MAT. Refer to rehab or IOP, and self-help groups. Smoking cessation with [place]. Nicotine patch daily.
--- NOTE | 2018-08-12 08:03 | PCM.PYCHDC ---
Mental Status Examination - Mental Status Examination Orientation: Person, Place, Situation, Time Memory: Intact Mood: Neutral Affect: Constricted Speech: Soft Attention: WNL Concentration: WNL Association: WNL Fund of Knowledge: WNL Formal Thought Process: No Impairment Suicidal Ideation: No Current Homicidal Ideation?: No Discharge Summary - Discharge Note Reason for Hospitalization: Patient seen, chart reviewed, case discussed with staff. Ms. Cardoso is a single 43 year old female PMH depression, diabetes, hypothyroidism, seizures comes to detox from Percocet. Reported not feeling depressed, no sleep or appetite problems, no SI/HI and no h/o suicidal attempts. Patient denied any psychotic, manic or anxiety symptoms currently or in the past. No h/o psychiatric admissions in the past. Reports abusing 10-12 Percocet since her shoulder repair surgery in 2012. Last use was day prior to admission. She has three children. She was here at [facility] in 2014 and was sober for 11.5 months after with IOP. Her eldest is 24 with mental disability and lives with patient and her mother. Her two younger children (8yo, 12yo) are with sister who has temporary custody. Smokes 1ppd cigs, denies alcohol and other illicit drugs. Denies SI/HI, AVH. Is currently experiencing withdrawal Sx: weakness, aches, diarrhea. PMH: diabetes, hypothyroidism, seizures Med: Klonopin, Paroxetine, Restoril, Halcion, Keppra All: ASA, PCN, zeus Narayanan saw her in Jun, next appointment Nov FamHx: Sister in law - cocaine Legal: DYFS for custody issues last year ED: BAL <10, UDS + for benzos and barbs, - for opiates Laboratory Data: Abnormal Lab Results 08/11/18 08/11/18 08/11/18 08:04 11:57 16:26 POC Glucose (mg/dL) 266 H 272 H 418 H* 08/11/18 08/12/18 21:04 07:32 POC Glucose (mg/dL) 305 H 266 H Consultations:: List each consultation separately and include: 1. Reason for request. 2. Findings. 3. Follow-up Summary of Hospital Course include:: 1. Description of specific treatment plan utilized for patients during their course of treatmen. 2. Summarize the time- course for resolution of acute symptoms and/or regressed behaviors. 3. Describe issues identified and worked on during hospitalization. 4. Describe medication utilized. 5. Describe medical problems identified and treated. 6. Reassessment of suicide risk - Final Diagnosis (DSM 5) Condition upon Discharge: GOOD DSM 5: Opioid use disorder - severe Opioid withdrawal Disposition: HOME/ ROUTINE Follow-up Treatment Plan: Opioid use disorder - severe Opioid withdrawal Taper with Subutex Atarax, Lexapro, Mag Ox. Gabapentin for augmentation Keppra, Levothyroxine as per home med. As needed meds. All risks, benefits, and alternatives of the meds discussed, and the patient agreed and understood. Attend groups and activities. Supportive therapy and psychoeducation. NE for abstinence. CBT for relapse prevention. Encourage MAT. Refer to rehab or IOP, and self-help groups. Smoking cessation with NE. Nicotine patch daily. Prescriptions/Medication Reconciliation: Escitalopram [Lexapro] 10 mg PO DAILY #30 tab Gabapentin [Neurontin] 600 mg PO TID #90 tab levETIRAcetam [Keppra] 500 mg PO BID #60 tab QUEtiapine [Seroquel] 100 mg PO HS #30 tab traZODone [Desyrel] 50 mg PO HS PRN #30 tab PRN Reason: insmnia
[2018-08-12] MEDS: (Novolog) Insulin Aspart, Recombinant 100 u/ml 10 ml vial SC SCH ×4 (08:13→21:03)
[2018-08-12] MEDS: Calcium-Vit D 250 mg-125 Units Tab UD PO SCH (09:03)
[2018-08-12] MEDS: Buprenorphine Hydrochloride 2 mg SL SCH (09:04)
[2018-08-12] MEDS: Magnesium Oxide 400 mg Tab UD PO SCH ×2 (09:04→17:05)
[2018-08-12 19:17] VITALS: TEMP 98.4
--- NOTE | 2018-08-12 21:08 | PCM.PYCHPN ---
Psychiatric Progress Note - Psychiatric Progress Note Patient seen today, length of contact: 17 min Patient Chief Complaint: I ma feeling little better.' Problems Identified/Issues Discussed: Patient seen and evaluated, chart reviewed and discussed with the nurse. As per the staff, she is improving. Patient reports some improvement in her withdrawal symptoms. Patient reports improvement in her anxiety but denies any suicidal ideation or homicidal ideation. She denies any auditory or visual hallucinations. She is tolerating the withdrawal medications and denies any side effects. Supportive therapy and psychoeducation were given. Medication Change: Yes (detox changes daily) Medical Record Reviewed: Yes Mental Status Examination - Cognitive Function Orientation: Person, Place, Situation, Time Memory: Intact Attention: WNL Concentration: WNL Association: WNL Fund of Knowledge: Poor - Mood Mood: Depressed - Affect Affect: Constricted - Speech Speech: Soft - Formal Thought Process Formal Thought Process: No Impairment - Suicidal Ideation Suicidal Ideation: No - Homicidal Ideation Homicidal Ideation: No Goal/Treatment Plan - Goal/Treatment Plan Need for Continued Stay: Severe depression anxiety, Discharge may exacerbated symptoms, Severe functional impairment Progress Toward Problem(s) and Goals/Treatment Plan: Opioid use disorder - severe Opioid withdrawal Taper with Subutex Atarax, Lexapro, Mag Ox. Gabapentin for augmentation Keppra, Levothyroxine as per home med. As needed meds. All risks, benefits, and alternatives of the meds discussed, and the patient agreed and understood. Attend groups and activities. Supportive therapy and psychoeducation. [place] for abstinence. CBT for relapse prevention. Encourage MAT. Refer to rehab or IOP, and self-help groups. Smoking cessation with MO. Nicotine patch daily.
[2018-08-13] MEDS: Levothyroxine 100 MCG TAB PO SCH (06:45)
[2018-08-13] MEDS: (Novolog) Insulin Aspart, Recombinant 100 u/ml 10 ml vial SC SCH (08:22)
--- NOTE | 2018-08-13 08:34 | PCM.PYCHDC ---
Mental Status Examination - Mental Status Examination Orientation: Person, Place, Situation, Time Memory: Intact Mood: Depressed Affect: Constricted Speech: Appropriate Attention: WNL Concentration: WNL Association: WNL Fund of Knowledge: WNL Formal Thought Process: No Impairment Suicidal Ideation: No Current Homicidal Ideation?: No Discharge Summary - Discharge Note Reason for Hospitalization: Opioid detox Laboratory Data: Abnormal Lab Results 08/12/18 08/12/18 08/12/18 11:29 16:01 21:01 POC Glucose (mg/dL) 283 H 336 H 325 H 08/13/18 08:10 POC Glucose (mg/dL) 248 H Consultations:: List each consultation separately and include: 1. Reason for request. 2. Findings. 3. Follow-up Summary of Hospital Course include:: 1. Description of specific treatment plan utilized for patients during their course of treatmen. 2. Summarize the time-co urse for resolution of acute symptoms and/or regressed behaviors. 3. Describe issues identified and worked on during hospitalization. 4. Describe medication utilized. 5. Describe medical problems identified and treated. 6. Reassessment of suicide risk Summary of Hospital Course: The pt was admitted and started on treatment with psychotherapy, support, psychoeducation and medications. WA and CBT used. The pt attended groups and activities, as well as milieu therapy. All the risks and benefits of medications are discussed and the patient understood and agreed. The pt improved with the treatments provided. After care discussed with the patient. [facility]. - Final Diagnosis (DSM 5) Condition upon Discharge: GOOD DSM 5: Opioid use disorder - severe Opioid withdrawal Disposition: REHAB FACILITY/REHAB UNIT Follow-up Treatment Plan: Continue below medications after discharge. Follow after care plan as discussed. Use relapse prevention skills Return to ER or call 911 if suicidal, homicidal or symptoms relapse. Stay away from stress, alcohol and drugs. See primary doctor regularly and get labs. Prescriptions/Medication Reconciliation: Escitalopram [Lexapro] 10 mg PO DAILY #30 tab Gabapentin [Neurontin] 600 mg PO TID #90 tab levETIRAcetam [Keppra] 500 mg PO BID #60 tab QUEtiapine [Seroquel] 100 mg PO HS #30 tab traZODone [Desyrel] 50 mg PO HS PRN #30 tab PRN Reason: insmnia
[2018-08-13 09:00] VITALS: BP 92/62; PULSE 87; O2SAT 98
[2018-08-13] MEDS: Buprenorphine Hydrochloride 2 mg SL SCH (09:15)
[2018-08-13] MEDS: Calcium-Vit D 250 mg-125 Units Tab UD PO SCH (09:20)
[2018-08-13] MEDS: Magnesium Oxide 400 mg Tab UD PO SCH (09:20)
== END 2018-08-13 10:44 | disposition home or self-care (01) | DRG 745 ==
LOC: C.ER 14:55 → C.7D 19:01
PROC: 3E02340 Introduction of Influenza Vaccine into Muscle, Percutaneous Approach (ICD-10-PCS; principal; 2018-08-09)
PROC: 3E0234Z Introduction of Serum, Toxoid and Vaccine into Muscle, Percutaneous Approach (ICD-10-PCS; 2018-08-09)
DX: F11.23 Opioid dependence with withdrawal (principal); E03.9 Hypothyroidism, unspecified; F41.9 Anxiety disorder, unspecified; E11.9 Type 2 diabetes mellitus without complications; F17.210 Nicotine dependence, cigarettes, uncomplicated; Z23 Encounter for immunization

== ENCOUNTER 2019-03-29 21:18 | Emergency (ER) | payer MEDICAID | END 2019-03-30 01:08 | disposition home or self-care (01) | LOC: C.ER 21:18 ==